=== PATIENT | male | born 1995 | race Caucasian/White ===

== ENCOUNTER 2020-01-26 12:40 | Emergency (ER) | payer BC, SELFPAY ==
[2020-01-26] MEDS ORDERED: LIDOCAINE 1% MPF 30 ML VIAL ONE (14:09)
[2020-01-26] MEDS ORDERED: BUPIVACAINE 0.5% PF 10 ML VIAL ONE (14:09)
--- NOTE | 2020-01-26 14:38 | EDPHYS ---
Physician Documentation [facility] Name: Levi Paul Age: 24 yrs Sex: Male : 1995 Arrival Date: 01/26/2020 Time: 12:43 Bed 19 Private MD: ED Physician Félix Borjas HPI: 01/25 13:55 This 24 yrs old Male presents to ER via Ambulatory with complaints of Foot cp Problem. 13:55 The patient presents with ingrown nail of right great toe. cp 13:55 Onset: The symptoms/episode began/occurred 2 week(s) ago. cp 13:55 Associated signs and symptoms: Pertinent positives: swelling, pain. cp Historical: - Allergies: 12:47 No Known Allergies; jd3 - Home Meds: 12:47 None [Active]; jd3 - PMHx: 12:47 None; jd3 - PSHx: 12:47 Hernia repair; jd3 - Immunization history:: Adult Immunizations not up to date, Last tetanus immunization: > 10 years ago. - Social history:: Smoking status: Patient reports the use of cigarette tobacco products, denies chronic smoking, but will smoke occasionally. ROS: 14:00 MS/extremity: Positive for pain, swelling, tenderness, of the medial aspect of nail of cp right great toe, Negative for injury or acute deformity. 14:00 Constitutional: Negative for chills, fever. cp 14:00 Skin: Negative for rash. 14:00 All other systems are negative. Exam: 14:10 Constitutional: The patient appears in no acute distress, alert, awake, non-toxic, well cp developed, well nourished. 14:10 Head/Face: Normocephalic, atraumatic. cp 14:10 Cardiovascular: Rate: normal. 14:10 Respiratory: the patient does not display signs of respiratory distress, Respirations: normal, no use of accessory muscles. 14:10 Musculoskeletal/extremity: Extremities: grossly normal except: noted in the medial side of nail of right great toe: erythema, pain, swelling, tenderness, Perfusion: the extremity is normally perfused throughout, Sensation intact. Vital Signs: 12:47 BP 131 / 77; Pulse 75; Resp 16 S; Temp 97.8(O); Pulse Ox 99% on R/A; Weight 140.61 kg jd3 (R); Height 6 ft. 1 in. (185.42 cm) (R); Pain 5/10; 14:43 BP 133 / 75; Pulse 62; Resp 15 S; Pulse Ox 95% on R/A; ca1 12:47 Body Mass Index 40.90 (140.61 kg, 185.42 cm) jd3 Procedures: 14:35 Performed partial nail removal. Digital block performed on right great toe using 5 ccs cp of mixture 1% lidocaine and 0.5% Marcaine. Using hemostats, medial aspect of nail removed. Patient tolerated procedure well. MDM: 13:43 Patient medically screened. cp 14:00 Differential diagnosis: fracture, cellulitis, ingrown nail, abscess. cp 14:36 Data reviewed: vital signs, nurses notes, and as a result, I will discharge patient. cp 14:36 Counseling: I had a detailed discussion with the patient and/or guardian regarding: the cp historical points, exam findings, and any diagnostic results supporting the discharge/admit diagnosis, the need for outpatient follow up, a ship fitter, to return to the emergency department if symptoms worsen or persist or if there are any questions or concerns that arise at home. Response to treatment: the patient's symptoms have markedly improved after treatment, and as a result, I will discharge patient. 01/25 13:44 Order name: I\T\D Setup; Complete Time: 13:53 cp Administered Medications: 14:40 Drug: Lidocaine (1 %) 10 ml {Note: by Bala Rojas, PA.} Volume: 20 ml; Route: ca1 Infiltration; 14:40 Drug: Marcaine (0.5 %) 10 ml {Note: by Bala Rojas, PA.} Volume: 10 ml; Route: ca1 Infiltration; Disposition: 15:00 Chart complete. cp 18:22 Co-signature as Attending Physician, Félix Borjas MD. rn Disposition: 01/26/20 14:37 Discharged to Home. Impression: Ingrowing nail - right great toe. - Condition is Stable. - Discharge Instructions: Ingrown Toenail. - Prescriptions for Ibuprofen 800 mg Oral Tablet - take 1 tablet by ORAL route every 8 hours As needed take with food; 30 tablet. Keflex 500 mg Oral Capsule - take 1 capsule by ORAL route every 6 hours for 10 days; 40 capsule. - Work release form, Medication Reconciliation Form, Thank You Letter, Antibiotic Education, Prescription Opioid Use form. - Follow up: Zachery King DPM; When: 1 week; Reason: Recheck today's complaints. Signatures: Félix Borjas MD MD rn Bala Rojas PA PA cp Davies, Jonathon RN RN jd3 Annamarie Raphael RN RN ca1 Corrections: (The following items were deleted from the chart) 14:50 14:37 01/26/2020 14:37 Discharged to Home. Impression: Ingrowing nail - right great ca1 toe. Condition is Stable. Forms are Medication Reconciliation Form, Thank You Letter, Antibiotic Education, Prescription Opioid Use. Follow up: Zachery King; When: 1 week; Reason: Recheck today's complaints. cp 01/26 00:41 01/25 13:55 The patient presents with ingrown nail of left great toe, cp cp
--- NOTE | 2020-01-26 14:38 | ER ---
Nurse's Notes [facility] Name: Levi Paul Age: 24 yrs Sex: Male : 1995 Arrival Date: 01/26/2020 Time: 12:43 Bed 19 Private MD: Diagnosis: Ingrowing nail-right great toe Presentation: 01/25 12:46 Onset of symptoms was January 21, 2020. Chief complaint: Patient states: "I think I jd3 have an ingrown and infected toe nail.". Coronavirus screen: At this time, the client does not indicate any symptoms associated with coronavirus-19. Ebola Screen: Patient negative for fever greater than or equal to 101.5 degrees Fahrenheit, and additional compatible Ebola Virus Disease symptoms. Initial Sepsis Screen: Does the patient meet any 2 criteria? No. Patient's initial sepsis screen is negative. Does the patient have a suspected source of infection? No. Patient's initial sepsis screen is negative. Risk Assessment: Do you want to hurt yourself or someone else? Patient reports no desire to harm self or others. 12:46 Method Of Arrival: Ambulatory jd3 12:46 Acuity: TRIPP 4 jd3 Historical: - Allergies: 12:47 No Known Allergies; jd3 - Home Meds: 12:47 None [Active]; jd3 - PMHx: 12:47 None; jd3 - PSHx: 12:47 Hernia repair; jd3 - Immunization history:: Adult Immunizations not up to date, Last tetanus immunization: > 10 years ago. - Social history:: Smoking status: Patient reports the use of cigarette tobacco products, denies chronic smoking, but will smoke occasionally. Screenin:19 Abuse screen: Denies threats or abuse. Denies injuries from another. Nutritional ca1 screening: No deficits noted. Tuberculosis screening: No symptoms or risk factors identified. Fall Risk None identified. Assessment: 13:45 General: Appears in no apparent distress. comfortable, Behavior is calm, cooperative, ca1 appropriate for age. Pain: Pain: Complains of pain in medial aspect of right toes and Right first toenail Pain does not radiate. Pain currently is 5 out of 10 on a pain scale. Pain began 2 weeks. 14:19 Neuro: Level of Consciousness is awake, alert, obeys commands, Oriented to person, ca1 place, time, situation. Derm: Skin is healthy with good turgor, Skin is pink, warm \\T\\ dry. Abscess located on Right first toenail is dime sized, has purulent drainage, is hot to touch, is red, is raised, was lanced by patient prior to arrival. Musculoskeletal: Circulation, motion, and sensation intact. Capillary refill < 3 seconds. 14:43 Reassessment: Patient appears in no apparent distress at this time. Patient is alert, ca1 oriented x 3, equal unlabored respirations, skin warm/dry/pink. Vital Signs: 12:47 BP 131 / 77; Pulse 75; Resp 16 S; Temp 97.8(O); Pulse Ox 99% on R/A; Weight 140.61 kg jd3 (R); Height 6 ft. 1 in. (185.42 cm) (R); Pain 5/10; 14:43 BP 133 / 75; Pulse 62; Resp 15 S; Pulse Ox 95% on R/A; ca1 12:47 Body Mass Index 40.90 (140.61 kg, 185.42 cm) jd3 ED Course: 12:43 Patient arrived in ED. as 12:46 Triage completed. jd3 12:47 Arm band placed on. jd3 13:37 Annamarie Raphael, LORELEI is Primary Nurse. ca1 13:38 Bala Rojas PA is PHCP. cp 13:38 Félix Borjas MD is Attending Physician. cp 14:19 Patient has correct armband on for positive identification. Bed in low position. Call ca1 light in reach. Side rails up X 1. Pulse ox on. NIBP on. 14:36 Zachery King DPM is Referral Physician. cp 14:44 Assist provider with I \\T\\ D: of an abscess on right toe Set up I\\T\\D tray. Performed by ca 1 Bala SWAN Dressing with 4X4s, tape Patient tolerated well. Patient did not have IV access during this emergency room visit. Administered Medications: 14:40 Drug: Lidocaine (1 %) 10 ml {Note: by BENY Nash.} Volume: 20 ml; Route: ca1 Infiltration; 14:40 Drug: Marcaine (0.5 %) 10 ml {Note: by PA. Saad} Volume: 10 ml; Route: ca1 Infiltration; Outcome: 14:37 Discharge ordered by . cp 14:49 Discharged to home ambulatory. ca1 14:49 Condition: stable 14:49 Discharge instructions given to patient, Instructed on discharge instructions, follow up and referral plans. medication usage, wound care, Demonstrated understanding of instructions, follow-up care, medications, wound care, Prescriptions given X 2. 14:50 Patient left the ED. ca1 Signatures: Mary Cantu Corey, PA PA cp Davies, Jonathon, RN RN jd3 Annamarie Raphael RN RN ca1 Corrections: (The following items were deleted from the chart) 14: 13:45 General: Appears in no apparent distress. comfortable, Behavior is calm, ca1 cooperative, appropriate for age, ca1 14: 13:45 Pain: ca1 ca1
[2020-01-26 15:27] VITALS: TEMP 97.8
[2020-01-26 15:29] VITALS: BP 133/75; O2SAT 95
== END 2020-01-26 14:50 | disposition home or self-care (01) ==
LOC: ER 12:40
PROC: 0HBRXZZ Excision of Toe Nail, External Approach (ICD-10-PCS; principal; 2020-01-26)
DX: L60.0 Ingrowing nail (principal); F17.210 Nicotine dependence, cigarettes, uncomplicated
CPT/HCPCS: 99284

== ENCOUNTER 2020-12-30 15:44 | Emergency (ER) | payer SELFPAY ==
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
--- NOTE | 2020-12-30 16:12 | ER ---
Nurse's Notes [facility] Name: Levi Paul Age: 25 yrs Sex: Male : 1995 Arrival Date: 12/30/2020 Time: 15:47 Bed Waiting Private MD: Diagnosis: Allergic contact dermatitis due to plants, except food Presentation: 12/30 16:05 Chief complaint: Patient states: "I got really bad poison ashley all over". Coronavirus aa5 screen: At this time, the client does not indicate any symptoms associated with coronavirus-19. Ebola Screen: Patient negative for fever greater than or equal to 101.5 degrees Fahrenheit, and additional compatible Ebola Virus Disease symptoms. Initial Sepsis Screen: Does the patient meet any 2 criteria? No. Patient's initial sepsis screen is negative. Does the patient have a suspected source of infection? No. Patient's initial sepsis screen is negative. Risk Assessment: Do you want to hurt yourself or someone else? Patient reports no desire to harm self or others. Onset of symptoms was December 2020. 16:05 Method Of Arrival: Ambulatory aa5 16:05 Acuity: TRIPP 4 aa5 Historical: - Allergies: 16:06 No Known Allergies; aa5 - PMHx: 16:06 None; aa5 - PSHx: 16:06 Hernia; aa5 - Immunization history:: Client reports having NOT received the Covid vaccine. - Social history:: Smoking status: Patient denies any tobacco usage or history of. Assessment: 16:23 Reassessment: Patient is alert, oriented x 3, equal unlabored respirations, skin aa5 warm/dry/pink. Vital Signs: 16:05 BP 136 / 98; Pulse 95; Resp 20 S; Temp 98.3; Pulse Ox 96% on R/A; Weight 131.54 kg (R); aa5 Height 6 ft. 1 in. (185.42 cm) (R); 16:05 Body Mass Index 38.26 (131.54 kg, 185.42 cm) aa5 ED Course: 15:47 Patient arrived in ED. am2 16:00 Emily Ovalles [facility]-C [facility]. kb 16:00 Felipe Espinosa MD is Attending Physician. kb 16:05 Arm band placed on. aa5 16:06 Triage completed. aa5 16:24 No provider procedures requiring assistance completed. Patient did not have IV access aa5 during this emergency room visit. Administered Medications: 16:11 Drug: SOLU-Medrol (methylPREDNISolone sodium succinate) 125 mg Route: IM; Site: right aa5 deltoid; 16:24 Follow up: Response: No adverse reaction aa5 16:11 Drug: Pepcid (famotidine) 20 mg Route: PO; aa5 16:24 Follow up: Response: No adverse reaction aa5 Outcome: 16:12 Discharge ordered by MD. james 16:24 Discharged to home ambulatory. aa5 16:24 Condition: stable 16:24 Discharge instructions given to patient, Instructed on discharge instructions, follow up and referral plans. medication usage, Demonstrated understanding of instructions, follow-up care, medications, Prescriptions given X 2. 16:24 Patient left the ED. aa5 Signatures: Emily Ovalles FNP-C FNP-Ellie Ocampo RN RN aa5 Ema Rodrigues am2
[2020-12-30] MEDS ORDERED: METHYLPREDNISOLONE 125 MG INJ ONE (16:32)
[2020-12-30] MEDS ORDERED: FAMOTIDINE 20 MG TAB ONE (16:34)
[2020-12-30 17:09] VITALS: BP 136/98; TEMP 98.3; O2SAT 96
== END 2020-12-30 16:24 | disposition home or self-care (01) ==
LOC: ER 15:44
DX: L23.7 Allergic contact dermatitis due to plants, except food (principal)
CPT/HCPCS: 96372; 99283; J2930

== ENCOUNTER 2021-01-07 17:27 | Emergency (ER) | payer SELFPAY ==
--- NOTE | 2021-01-07 18:08 | ER ---
Nurse's Notes [facility] Name: Levi Paul Age: 25 yrs Sex: Male : 1995 Arrival Date: 01/07/2021 Time: 17:30 Bed 15 Private MD: Diagnosis: Rash and other nonspecific skin eruption-poison Carmen Presentation: 01/07 17:45 Chief complaint: Patient states: "I was here a week ago and was treated for poison CARMEN. ss It was getting better, but two days ago my legs started swelling and they are red." Denies pain/ fever. Coronavirus screen: Client denies travel out of the [place] in the last 14 days. Ebola Screen: Patient denies exposure to infectious person. Patient denies travel to an Ebola-affected area in the 21 days before illness onset. Initial Sepsis Screen: Does the patient meet any 2 criteria? No. Patient's initial sepsis screen is negative. Does the patient have a suspected source of infection? No. Patient's initial sepsis screen is negative. Risk Assessment: Do you want to hurt yourself or someone else? Patient reports no desire to harm self or others. Onset of symptoms was January 04, 2021. 17:45 Method Of Arrival: Ambulatory ss 17:45 Acuity: TRIPP 3 ss Triage Assessment: 18:01 General: Appears uncomfortable, well developed, well nourished, Behavior is calm, es2 cooperative, appropriate for age. Pain: Denies pain. Historical: - Allergies: 17:46 No Known Allergies; ss - Home Meds: 17:46 None [Active]; ss - PMHx: 17:46 None; ss - PSHx: 17:46 hernia; ss - Immunization history:: Client reports having NOT received the Covid vaccine. - Social history:: Smoking status: Reported history of juuling and/or vaping. Patient/guardian denies using alcohol, street drugs, The patient lives with family. - Family history:: not pertinent. Screenin:00 Abuse screen: Denies threats or abuse. Denies injuries from another. Nutritional es2 screening: No deficits noted. Tuberculosis screening: No symptoms or risk factors identified. Fall Risk None identified. Gait- Normal/Bed Rest/Wheelchair (0 pts) Mental Status- Oriented to own ability (0 pts). Assessment: 18:01 Reassessment: Patient and/or family updated on plan of care and expected duration. Pain es2 level reassessed. Patient is alert, oriented x 3, equal unlabored respirations, skin warm/dry/pink. Pt jeanne legs, red and tender. States he got into poison carmen last week. General: Appears well developed, well nourished, Behavior is calm, cooperative, appropriate for age. Neuro: Level of Consciousness is awake, alert, obeys commands, Oriented to person, place, time, situation, Appropriate for age Speech is normal. Cardiovascular: Capillary refill < 3 seconds. Respiratory: Airway is patent Respiratory effort is even, unlabored, Respiratory pattern is regular, symmetrical. GI: : No signs and/or symptoms were reported regarding the genitourinary system. EENT: No signs and/or symptoms were reported regarding the EENT system. Derm: Skin has blisters on red, tender and weeping. Musculoskeletal: Capillary refill < 3 seconds. Vital Signs: 17:45 BP 138 / 81; Pulse 90; Resp 16; Temp 98.7(TE); Pulse Ox 99% ; Weight 131.54 kg; Height ss 6 ft. 1 in. (185.42 cm); Pain 0/10; 18:01 BP 125 / 69; Pulse 74; Resp 18; Pulse Ox 100% on R/A; es2 17:45 Body Mass Index 38.26 (131.54 kg, 185.42 cm) ED Course: 17:30 Patient arrived in ED. mr 17:38 Klaudia Paul RN is Primary Nurse. es2 17:44 Billie Galan MD is Attending Physician. ma2 17:46 Triage completed. ss 17:46 Arm band placed on right wrist. ss 18:00 Patient has correct armband on for positive identification. Call light in reach. es2 18:01 No provider procedures requiring assistance completed. es2 18:34 Patient did not have IV access during this emergency room visit. es2 Administered Medications: 18:23 Drug: HYDROcodone-acetaminophen 5 mg-325 mg 1 tabs {Note: Rass 0.} Route: PO; es2 18:33 Follow up: Response: No adverse reaction es2 18:25 Drug: SOLU-Medrol (methylPrednisoLONE) 125 mg Route: IVP; Site: Other; es2 18:33 Follow up: Response: No adverse reaction es2 Outcome: 18:07 Discharge ordered by . ma2 18:33 Discharged to home ambulatory. es2 18:33 Condition: stable 18:33 Discharge instructions given to patient, Instructed on discharge instructions, follow up and referral plans. medication usage, Demonstrated understanding of instructions, follow-up care, medications, Prescriptions given X 3. 18:41 Patient left the ED. es2 Signatures: Mckenzie Wakefield mr Maria Guadalupe Aquino RN RN Billie Galan MD MD ma2 Klaudia Paul RN RN es2
--- NOTE | 2021-01-07 18:08 | EDPHYS ---
Physician Documentation [facility] Name: Levi Paul Age: 25 yrs Sex: Male : 1995 Arrival Date: 01/07/2021 Time: 17:30 Bed 15 Private MD: ED Physician Billie Galan HPI: 01/07 18:05 This 25 yrs old Male presents to ER via Ambulatory with complaints of Feet ma2 Swelling. 18:05 This 25 yrs old Male presents to ER via Ambulatory with complaints of Feet ma2 Swelling and rash poison lizbeth. 18:05 Onset: The symptoms/episode began/occurred gradually, 2 week(s) ago. Associated signs ma2 and symptoms: Pertinent negatives numbness, swelling, vomiting, warmth. Treatment prior to arrival includes: prescription medications. Severity of symptoms: At their worst the symptoms were mild, in the emergency department the symptoms are unchanged. The patient has experienced similar episodes in the past. Historical: - Allergies: 17:46 No Known Allergies; ss - Home Meds: 17:46 None [Active]; ss - PMHx: 17:46 None; ss - PSHx: 17:46 hernia; ss - Immunization history:: Client reports having NOT received the Covid vaccine. - Social history:: Smoking status: Reported history of juuling and/or vaping. Patient/guardian denies using alcohol, street drugs, The patient lives with family. - Family history:: not pertinent. ROS: 18:05 Constitutional: Negative for fever, chills, and weight loss. ma2 18:05 All other systems are negative. Exam: 18:05 Constitutional: This is a well developed, well nourished patient who is awake, alert, ma2 and in no acute distress. Chest/axilla: Normal chest wall appearance and motion. Nontender with no deformity. No lesions are appreciated. Cardiovascular: Regular rate and rhythm with a normal S1 and S2. No gallops, murmurs, or rubs. Normal PMI, no JVD. No pulse deficits. Respiratory: Lungs have equal breath sounds bilaterally, clear to auscultation and percussion. No rales, rhonchi or wheezes noted. No increased work of breathing, no retractions or nasal flaring. Abdomen/GI: Soft, non-tender, with normal bowel sounds. No distension or tympany. No guarding or rebound. No evidence of tenderness throughout. Skin: Warm, dry with normal turgor. Normal color with no rashes, no lesions, and no evidence of cellulitis. MS/ Extremity: LE rash consistent with poison lizbeth, otherwise Pulses equal, no cyanosis. Neurovascular intact. Full, normal range of motion. Neuro: Awake and alert, GCS 15, oriented to person, place, time, and situation. Cranial nerves II-XII grossly intact. Motor strength 5/5 in all extremities. Sensory grossly intact. Cerebellar exam normal. Normal gait. Vital Signs: 17:45 BP 138 / 81; Pulse 90; Resp 16; Temp 98.7(TE); Pulse Ox 99% ; Weight 131.54 kg; Height ss 6 ft. 1 in. (185.42 cm); Pain 0/10; 18:01 BP 125 / 69; Pulse 74; Resp 18; Pulse Ox 100% on R/A; es2 17:45 Body Mass Index 38.26 (131.54 kg, 185.42 cm) ss MDM: 17:44 Patient medically screened. ma2 18:05 Differential diagnosis: dislocation, contusion, abrasion, tendonitis. Data reviewed: ma2 vital signs, nurses notes. Counseling: I had a detailed discussion with the patient and/or guardian regarding: the historical points, exam findings, and any diagnostic results supporting the discharge/admit diagnosis, the presence of at least one elevated blood pressure reading (>120/80) during this emergency department visit, the need for outpatient follow up. Response to treatment: the patient's symptoms have markedly improved after treatment. Administered Medications: 18:23 Drug: HYDROcodone-acetaminophen 5 mg-325 mg 1 tabs {Note: Rass 0.} Route: PO; es2 18:33 Follow up: Response: No adverse reaction es2 18:25 Drug: SOLU-Medrol (methylPrednisoLONE) 125 mg Route: IVP; Site: Other; es2 18:33 Follow up: Response: No adverse reaction es2 Disposition Summary: 01/07/21 18:07 Discharge Ordered Location: Home ma2 Condition: Stable ma2 Diagnosis - Rash and other nonspecific skin eruption - poison Lizbeth ma2 Followup: ma2 - With: Private Physician - When: Tomorrow - Reason: Continuance of care Discharge Instructions: - Discharge Summary Sheet ma2 - Poison Lizbeth Dermatitis, [id number] ma2 Forms: - Medication Reconciliation Form ma2 - Thank You Letter ma2 - Antibiotic Education ma2 - Prescription Opioid Use ma2 - Work release form eb Prescriptions: - Diclofenac Sodium 75 mg Oral Tablet Sustained Release - take 1 tablet by ORAL route 2 times per day; 30 tablet; Refills: 0, Product ma2 Selection Permitted - Medrol (Juan C) 4 mg Oral Tablets, Dose Pack - take 1 tablet by ORAL route as directed - follow package instructions; 1 ma2 packet; Refills: 0, Product Selection Permitted - Benadryl 25 mg Oral Capsule - take 1 capsule by ORAL route every 6 hours As needed; 30 tablet; Refills: 0, ma2 Product Selection Permitted Signatures: Maria Guadalupe Aquino RN RN ss Billie Galan MD MD ma2 Klaudia Paul RN RN es2
[2021-01-07] MEDS ORDERED: HYDROCODONE/APAP 5/325 MG TAB ONE (18:44)
[2021-01-07] MEDS ORDERED: METHYLPREDNISOLONE 125 MG INJ ONE (18:46)
[2021-01-07 19:00] VITALS: TEMP 98.7
[2021-01-07 19:02] VITALS: BP 125/69; O2SAT 100
== END 2021-01-07 18:41 | disposition home or self-care (01) ==
LOC: ER 17:27
DX: L23.7 Allergic contact dermatitis due to plants, except food (principal)
CPT/HCPCS: 96374; 99283; J2930